=== PATIENT | female | born 1965 | race Caucasian/White ===

== ENCOUNTER 2020-01-17 16:12 | Emergency (ER) | payer OTHER ==
[~2020-01-17] VITALS: Ht 167.6 cm; Wt 104.3 kg
[2020-01-17] MEDS ORDERED: KEFLEX500 M1 PO (18:18)
[2020-01-17 19:01] VITALS: BP 206/125
== END 2020-01-17 19:04 | disposition home or self-care (01) ==
LOC: M.ERS 16:12
DX: S52.501A Unspecified fracture of the lower end of right radius, initial encounter for closed fracture (principal); S60.811A Abrasion of right wrist, initial encounter; L03.113 Cellulitis of right upper limb; M25.552 Pain in left hip; R20.0 Anesthesia of skin; V87.8XXA Person injured in other specified noncollision transport accidents involving motor vehicle (traffic), initial encounter; Y93.89 Activity, other specified; Y92.488 Other paved roadways as the place of occurrence of the external cause; Y99.8 Other external cause status